=== PATIENT | female | born 1950 | race Two or more races ===

== ENCOUNTER 2019-03-10 12:41 | Outpatient (CLI) | payer MEDICARE | END 2019-03-10 23:59 | disposition home or self-care (01) | LOC: CFH 12:41 | PROVIDERS: ATTEND Family Medicine | DX: M81.0 Age-related osteoporosis without current pathological fracture (principal) | CPT/HCPCS: 77080 ==

== ENCOUNTER 2019-04-26 10:17 | Outpatient (CLI) | payer MEDICARE | END 2019-04-26 23:59 | disposition home or self-care (01) | LOC: CFH 10:17 | PROVIDERS: ATTEND Physician Assistant | DX: N64.4 Mastodynia (principal) | CPT/HCPCS: 76642; 77066; G0279 ==

== ENCOUNTER 2020-11-08 10:34 | Emergency (ER) | payer MEDICARE ==
[~2020-11-08] VITALS: Ht 152.4 cm; Wt 51.0 kg
[2020-11-08] MEDS ORDERED: SODIUM CHLORIDE FLUSH 10ML SYR IVF ONE (11:00)
--- NOTE | 2020-11-08 11:02 | NUR ---
PATIENT WALKED BACK FROM TRIAGE WITH CHIEF C/O DIFFUSE ABD PAIN. VISHAL, NON DESTRUCTIVE TESTING ENGINEER AT BEDSIDE FOR BLOOD DRAW.
--- NOTE | 2020-11-08 11:08 | NUR ---
PATIENT IS LAO SPEAKING ONLY, CYRACOM IN ROOM, WAITING FOR MACHINE CEMENTER AND FOLDER TO COME ON.
--- NOTE | 2020-11-08 11:11 | NUR ---
GREGG AT BEDSIDE FOR EVALUATION, [employer] GRAIN II FARMWORKER ON SPEAKER.
--- NOTE | 2020-11-08 11:12 | NUR ---
THROUGH FLIGHT TEST [employer] MECHANIC SERVICES, PATIENT'S ABD PAIN COMES ON AFTER SHE EATS, AND SOMETIMES WHEN SHE DOESN'T EAT. PATIENT DENIES N/V/D. ABD PAIN HAS BEEN INTERMITTENT xSEVERAL MONTHS. PATIENT DENIES PAIN WITH URINATION.
[2020-11-08 11:18] LABS: BASOPHILS % (AUTO) 2 % (0-1); EOSINOPHILS % (AUTO) 2 % (1-7); LYMPHOCYTES % (AUTO) 29 % (22-44); MD NO; MEAN CORPUSCULAR HEMOGLOBIN 31.5 pg (27.0-34.8); MEAN CORPUSCULAR HGB CONC 34.2 g/dL (32.4-35.8); MEAN PLATELET VOLUME 6.9 fL (7.4-10.4); MONOCYTES % (AUTO) 6 % (2-9); NEUTROPHILS % (AUTO) 62 % (42-75); PLATELET COUNT 263 x10^3/uL (130-400); RED BLOOD COUNT 5.02 x10^6/uL (3.82-5.3); RED CELL DISTRIBUTION WIDTH 13.8 % (9.6-15.2)
--- NOTE | 2020-11-08 11:21 | NUR ---
PATIENT AMBULATED TO BATHROOM WITH STEADY GAIT FOR URINE SAMPLE.
[2020-11-08 11:28] LABS: ALBUMIN 4.2 g/dL (3.4-5.0); ANION GAP 4 mmol/L (5-15); CALCIUM 9.1 mg/dL (8.5-10.1); CHLORIDE 112 mmol/L (98-107)
[2020-11-08 11:30] LABS: ALANINE AMINOTRANSFERASE 27 U/L (12-78); ALKALINE PHOSPHATASE 96 U/L (45-117); BILIRUBIN,TOTAL 0.7 mg/dL (0.2-1.0); CREATININE 0.63 mg/dL (0.55-1.02); TOTAL PROTEIN 7.4 g/dL (6.4-8.2)
--- NOTE | 2020-11-08 11:30 | NUR ---
20 GAUGE IV STARTED RIGHT AC, URINE SAMPLE COLLECTED AND SENT TO LAB. PATIENT TO CT SCAN.
[2020-11-08 11:55] LABS: MICROSCOPIC AUTO
[2020-11-08] MEDS ORDERED: OMNIPAQUE 350 MG/ML, 100ML BOTTLE ONE (12:00)
--- NOTE | 2020-11-08 12:06 | NUR ---
PATIENT BACK FROM CT SCAN, RESTING IN VISHAL BEAN VSS, CALL LIGHT WITHIN REACH. WAITING FOR CT READ.
[2020-11-08 12:59] VITALS: BP 132/66
--- NOTE | 2020-11-08 13:19 | NUR ---
Patient given discharge instructions and they have confirmed that they understand the instructions. IV removed with tip intact, all patient belongings gathered and taken with patient. Patient stable and ambulatory with steady gait from ED.
== END 2020-11-08 13:19 | disposition home or self-care (01) ==
LOC: ED 13:13
DX: G89.29 Other chronic pain (principal); R10.13 Epigastric pain; R10.11 Right upper quadrant pain; R10.12 Left upper quadrant pain; I10 Essential (primary) hypertension
CPT/HCPCS: 36415; 74177; 80053; 81001; 83605; 83690; 85025; 99285; Q9967